=== PATIENT | male | born 2000 | race Two or more races ===

== ENCOUNTER → 2025-04-14 | Outpatient (CLI) | payer MEDICAID, SELFPAY ==
--- NOTE | 2025-04-14 | XR_ITS ---
Examination: Hand, left 3 views Technique: Hand AP, oblique, lateral 3 views Date and time of exam: April 14, 2025, 0825 hours INDICATIONS: Injury to the hand 3 months ago with persistent pain FINDINGS: No acute fracture. No dislocation. No foreign body IMPRESSION: No acute fracture, no foreign body
--- NOTE | 2025-04-14 | XR_ITS ---
Examination: Wrist, right 3 views Technique: Wrist AP, oblique, lateral 3 views Date and time of exam: April 14, 2025, 0828 hours INDICATIONS: Right wrist pain beginning 1 month ago. FINDINGS: No fracture or dislocation. No foreign body No arthritic change IMPRESSION: Negative for osseous abnormality
== END | disposition home or self-care (01) ==
DX: S69.92XA Unspecified injury of left wrist, hand and finger(s), initial encounter (principal); X58.XXXA Exposure to other specified factors, initial encounter; M25.831 Other specified joint disorders, right wrist
CPT/HCPCS: 73110; 73130